=== PATIENT | female | born 1960 ===

== ENCOUNTER 2024-09-13 05:47 | Day surgery (SDC) | payer OTHER ==
[2024-09-07 11:06] VITALS: BP 118/80
[2024-09-07 11:21] LABS: PARTIAL THROMBOPLASTIN TIME 28.1 SECONDS (22.0-34.0); PROTHROMBIN TIME 10.9 SECONDS (9.0-11.5)
[~2024-09-13] VITALS: Ht 152.4 cm; Wt 70.8 kg
[~2024-09-13 05:47] MED LIST: FOLIC ACID1 MG PO; IBUPROFEN800 MG PO; NABUMETONE500 MG PO; NEURONTIN300 MG PO; PERCOCET 5/3251 TAB PO; POLY119PG PO; PROLIA60 MG/1 ML; PROTONIX40 MG PO; VITAMIN D310000 UNIT PO
[2024-09-13] MEDS ORDERED: ENOXAPARIN SODIUM 40 MG/0.4 ML SYRINGE SUBCUTANEO ONE (09:24)
[2024-09-13] MEDS ORDERED: ERTAPENEM SODIUM 1,000 MG VIAL ONE (09:25)
[2024-09-13] MEDS ORDERED: BUPIVACAINE HCL/MPF 0.5% 30ML VIAL ONE (12:00)
[2024-09-13] MEDS ORDERED: PERCOCET 5-3251 EACH PO (13:45)
[2024-09-13] MEDS ORDERED: MORPHINE SULFATE 4 MG/ML VIAL IV ONE (14:10)
[2024-09-13] MEDS ORDERED: MORPHINE SULFATE 2 MG/ML CARTRIDGE IV ONE (15:30)
== END 2024-09-13 16:40 | disposition home or self-care (01) ==
LOC: CIR.AMB 05:47
PROVIDERS: ATTEND Surgery
DX: K80.10 Calculus of gallbladder with chronic cholecystitis without obstruction (principal)